=== PATIENT | female | born 1985 | race Caucasian/White ===

== ENCOUNTER 2020-12-15 21:36 | Emergency (ER) | payer BC ==
[~2020-12-15] VITALS: Ht 165.1 cm; Wt 81.6 kg
--- NOTE | 2020-12-15 21:48 | NUR ---
US tech into do procedure.
[2020-12-15 22:00] VITALS: BP 125/82
--- NOTE | 2020-12-15 22:00 | NUR ---
Patient discharged to home in stable condition. Written and verbal after care instructions given. Patient verbalizes understanding of instructions. Stressed follow up or return to ER for worsening s/s.
== END 2020-12-15 22:01 | disposition home or self-care (01) ==
LOC: ER 21:36
DX: R60.0 Localized edema (principal); K21.9 Gastro-esophageal reflux disease without esophagitis
CPT/HCPCS: A4663